=== PATIENT | male | born 1950 | race Caucasian/White ===

== ENCOUNTER → 2016-11-30 | Outpatient (CLI) | payer MEDICARE, OTHER ==
[~2016-11-30] MED LIST: ALBU6.7H IH; AMIO100T4 PO; AMOX1TAB61 PO; ATOR10TA60 PO; BENZ100C PO; CARV6.25 PO; DABI150C PO; ESOM20CA PO; FENO134C PO; FLUT16SP2 NAS; POTA20TA4 PO; SIMV5TAB5 PO
--- NOTE | 2016-11-30 09:43 | RAD ---
Complete abdominal ultrasound History: Elevated liver enzymes. Comparison: Ultrasound abdomen performed at [facility] 10/04/2016. Procedure: Transabdominal ultrasound images are obtained. Findings: Examination is technically difficult secondary to patient body habitus and bowel gas. Pancreas is not well seen, obscured by bowel. Liver is normal in echogenicity. No focal hepatic masses are identified. Right hepatic lobe measures 15.3 cm in length. Gallbladder has an unremarkable appearance. Common bile duct measures normally at 5 mm in diameter. Spleen is unremarkable. Splenic length is 9.0 cm. Right kidney is normal in size and configuration without hydronephrosis. Left kidney is normal in size and configuration without hydronephrosis. The aorta and IVC are poorly visualized. Impression: 1. Limited examination secondary to patient body habitus and bowel gas. 2. No acute abnormality identified.
== END | disposition home or self-care (01) ==
LOC: US 07:00
PROVIDERS: ATTEND Nurse Practitioner Family
DX: R94.5 Abnormal results of liver function studies (principal); R74.8 Abnormal levels of other serum enzymes
CPT/HCPCS: 76700

== ENCOUNTER → 2017-01-11 | Outpatient (CLI) | payer MEDICARE, OTHER ==
--- NOTE | 2017-01-11 09:36 | RAD ---
Examination: CT chest without contrast History: History of upper respiratory infection, cough, thoracic dilatation. Comparison: 02/02/2012 Technique: Axial CT images of the chest were performed without contrast. Coronal and sagittal reformats are performed PQRS Compliance Statement: One or more of the following individualized dose reduction techniques were utilized for this examination: 1. Automated exposure control 2. Adjustment of the mA and/or kV according to patient size 3. Use of iterative reconstruction technique Findings: Small subcentimeter nodules identified in the left lobe of the thyroid gland. The central airways are patent. Mild cardiomegaly is identified. Diffuse coronary artery calcifications identified. No evidence of pericardial effusion. The caliber of the ascending aorta, arch of the aorta and the descending aorta grossly appears unremarkable. Left-sided cardiac pacer is identified No radiologically significant mediastinal lymphadenopathy is noted. Paraseptal emphysematous changes identified in the apical lungs. Minimal right basal lung atelectasis. The visualized noncontrasted liver, spleen, adrenals grossly appears unremarkable. The gallbladder is mildly distended. The visualized pancreas grossly appears unremarkable. Moderate aortic atherosclerosis. Mild degenerative changes thoracic spine. Impression: 1. No evidence of visualized thoracic aortic aneurysm. 2. Coronary artery calcifications. 3. Paraseptal emphysematous changes identified in the apical lungs.
== END | disposition home or self-care (01) ==
LOC: CT 08:51
PROVIDERS: ATTEND Nurse Practitioner Adult Health
DX: I77.810 Thoracic aortic ectasia (principal); M47.894 Other spondylosis, thoracic region; I25.10 Atherosclerotic heart disease of native coronary artery without angina pectoris; J43.8 Other emphysema; J06.9 Acute upper respiratory infection, unspecified; I51.7 Cardiomegaly; I48.0 Paroxysmal atrial fibrillation; I50.20 Unspecified systolic (congestive) heart failure
CPT/HCPCS: 71250